=== PATIENT | female | born 2000 | race Caucasian/White ===

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

== ENCOUNTER 2022-02-14 19:26 | Emergency (ER) | payer BC ==
[2022-02-14 20:04] VITALS: BP 129/74; PULSE 80
[2022-02-14] MEDS ORDERED: Sodium Chloride 0.9% 10 ML Syringe FLUSH PRN (20:04)
[2022-02-14] MEDS ORDERED: Ondansetron 4 MG/2 ML SDV IVPUSH ONE (20:04)
[2022-02-14] MEDS ORDERED: Sodium Chloride 0.9% 1,000 ML IV SCH (20:15)
[2022-02-14] MEDS ORDERED: Iopamidol 612 MG/ML 100 ML Bottle IVPUSH ONE (20:25)
[2022-02-14 20:30] LABS: ESTIMATED GFR 107 mL/min (>60)
[2022-02-14] MEDS ORDERED: Magnesium Citrate Solution 296 ML Bottle PO ONE (21:28)
[2022-02-14] MEDS ORDERED: Polyethylene Glycol 3350 Powder 17 GM Packet PO ONE (21:34)
== END 2022-02-14 21:51 | disposition home or self-care (01) ==
LOC: JD.ED 19:26
DX: R10.31 Right lower quadrant pain (principal)
CPT/HCPCS: 36415; 74177; 80053; 81001; 83690; 83735; 84702; 85025; 86140; 99284; A9270; Q9967; 99283

== ENCOUNTER → 2023-02-17 | Day surgery (SDC) | payer BC ==
[~2023-02-17] MED LIST: Bupivacaine 0.25% 10 ML SDV ONE; Dexamethasone 4 MG/ML 5 ML MDV ONE; EPINEPHrine 1 MG/ML 30 ML MDV ONE; HYDROmorphone 0.5 MG/0.5 ML Syringe IVPUSH PRN; Ketorolac 30 MG/ML SDV ONE; Lactated Ringers 1,000 ML IV SCH; Lidocaine 1% 5 ML VIAL ONE; Midazolam 1 MG/ML 2 ML SDV ONE; Ondansetron 4 MG/2 ML SDV IVPUSH PRN; Ondansetron 4 MG/2 ML SDV ONE; Propofol 200 MG/20 ML SDV ONE; Sodium Chloride 0.9% 10 ML Syringe FLUSH PRN; Sodium Chloride 0.9% 10 ML Syringe FLUSH SCH; ceFAZolin 2 GM Vial ONE; fentaNYL 100 MCG/2 ML SDV IVPUSH PRN; fentaNYL 250 MCG/5 ML SDV ONE
[2023-02-17 08:34] VITALS: BP 113/55
[2023-02-17 09:07] VITALS: PULSE 80
== END | disposition home or self-care (01) ==
LOC: JD.SDS 05:40
PROVIDERS: ATTEND Orthopaedic Surgery
DX: M79.4 Hypertrophy of (infrapatellar) fat pad (principal); M25.861 Other specified joint disorders, right knee; M22.41 Chondromalacia patellae, right knee; M65.861 Other synovitis and tenosynovitis, right lower leg; K13.21 Leukoplakia of oral mucosa, including tongue; G89.29 Other chronic pain; M25.562 Pain in left knee; Z91.040 Latex allergy status; Z91.048 Other nonmedicinal substance allergy status; Z88.5 Allergy status to narcotic agent; Z79.899 Other long term (current) drug therapy; Z79.82 Long term (current) use of aspirin
CPT/HCPCS: 29875; 81025; J0171; J0690; J1100; J1885; J2250; J2405; J2704; J3010; J3490; J7120; 01400